=== PATIENT | female | born 1960 | race Two or more races ===

== ENCOUNTER 2024-12-24 06:14 | Emergency (ER) | payer OTHER ==
[~2024-12-24] VITALS: Ht 152.4 cm; Wt 63.5 kg
[2024-12-24] MEDS ORDERED: ZESTRIL20 MG PO (06:28)
[2024-12-24] MEDS ORDERED: EZALLOR SPRINKL20 MG PO (06:28)
[2024-12-24] MEDS ORDERED: HYOSCYAMINE SULFATE 0.125 MG TAB.SUBL SL STA (07:31)
[2024-12-24] MEDS ORDERED: ONDANSETRON HCL 2 MG/ML VIAL IV STA (07:31)
[2024-12-24] MEDS ORDERED: LACTOBACILLUS ACIDOPHILUS 1 CAP CAP PO STA (07:32)
[2024-12-24] MEDS ORDERED: FAMOTIDINE/PF 20 MG/2 ML VIAL IV PUSH STA (07:32)
[2024-12-24] MEDS ORDERED: ONDANSETRON HCL 2 MG/ML VIAL ONE (07:37)
[2024-12-24] MEDS ORDERED: LACTOBACILLUS ACIDOPHILUS 1 CAP CAP PO ONE (07:38)
[2024-12-24] MEDS ORDERED: HYOSCYAMINE SULFATE 0.125 MG TAB.SUBL ONE (07:38)
[2024-12-24] MEDS ORDERED: FAMOTIDINE/PF 20 MG/2 ML VIAL ONE (07:38)
[2024-12-24] MEDS ORDERED: 0.9 % SODIUM CHLORIDE 1,000 ML IV ONE (07:45)
[2024-12-24 08:30] LABS: HEMATOCRIT 40.6 % (36.0-45.00); HEMOGLOBIN 13.9 g/dL (12.0-15.00); MEAN CELL VOLUME 92.9 fL (80.00-100.00); MEAN CORPUSCULAR HEMOGLOBIN 31.7 pg (27.00-32.0); MEAN CORPUSCULAR HGB CONC 34.1 g/dl (32.0-36.0); PLATELET COUNT 251 K/uL (150-450); RED BLOOD COUNT 4.37 M/uL (4.00-6.00); RED CELL DISTRIBUTION WIDTH 12.7 % (11.5-14.5)
[2024-12-24 08:46] LABS: CALCIUM 9.6 mg/dL (8.5-10.1); CREATININE SERUM 0.71 mg/dL (0.55-1.02); GFR 83.41; POTASSIUM 3.82 mEq/L (3.5-5.1)
[2024-12-24 08:57] LABS: URINE APPEARANCE Clear; URINE BILIRRUBIN Negative (NEGATIVE); URINE BLOOD Negative; URINE COLOR Yellow; URINE GLUCOSE Negative (NEGATIVE); URINE KETONE Negative (NEGATIVE); URINE LEUKOCYTE Moderate; URINE NITRATE Negative; URINE PROTEIN Trace (NEGATIVE)
[2024-12-24 09:03] LABS: URINE BACTERIA 646.1 uL (0.0-1933); URINE RBC 79.8 uL (0.0-20.8); URINE WBC 75.8 uL (0.0-23.2)
[2024-12-24 09:44] LABS: URINE CAST 0.29 uL (0.0-1.40)
== END 2024-12-24 11:28 | disposition home or self-care (01) ==
LOC: ER 06:16
PROVIDERS: General Practice
DX: R11.10 Vomiting, unspecified (principal); R19.7 Diarrhea, unspecified; I10 Essential (primary) hypertension